=== PATIENT | male | born 1975 | race Caucasian/White ===

== ENCOUNTER 2025-10-21 21:25 | Emergency (ER) | payer OTHER, BC ==
[2025-10-21] MEDS ORDERED: Lidocaine 1% w/Epinephrine 1:200K 30 ML VIAL ONE (22:01)
[2025-10-21 22:18] LABS: #Basophils 0.03 10x3/uL (0.0-0.2); #Eosinophils 0.27 10x3/uL (0.0-0.5); #Monocytes 1.05 10x3/uL (0.0-1.1); #Neutrophils 4.73 10x3/uL (1.5-8.4); %Basophils 0.4 % (0.0-2.0); %Eosinophils 3.2 % (0.0-6.0); %Lymphocytes 27.2 % (18.0-47.0); %Monocytes 12.5 % (0.0-10.0); %Neutrophils 56.5 % (40.0-75.0); Hematocrit 40.5 % (38.8-50.0); Hemoglobin 14.1 g/dL (13.5-17.5); Mean Corpuscular Hemoglobin 30.0 pg (27.0-33.0); Mean Corpuscular Volume 86.2 fL (81.2-95.1); Platelet Count 252 10x3/uL (150-450); Red Blood Cell (RBC) Count 4.70 10x6/uL (4.32-5.72); White Blood Cell (WBC) Count 8.38 10x3/uL (3.5-10.5)
[2025-10-21 22:32] LABS: ALT (SGPT) 28 U/L (Less than 45); AST (SGOT) 29 U/L (11-34); Albumin 3.7 g/dL (3.1-4.5); Alkaline Phosphatase 58 U/L (40-110); Anion Gap 16 mmol/L (10-20); BUN (Urea Nitrogen) 18 mg/dL (8.9-20.6); Bilirubin, Total 0.5 mg/dL (0.3-1.2); Calc. Creatinine Clearance 0 mL/min (70-130); Calcium 8.9 mg/dL (7.8-10.44); Carbon Dioxide 25 mmol/L (22-29); Chloride 106 mmol/L (98-107); Globulin 3.1 g/dL (2.4-3.5); Glucose 127 mg/dL (70-105); Potassium 3.9 mmol/L (3.5-5.1); Sodium 143 mmol/L (136-145)
[2025-10-21] MEDS ORDERED: cefTRIAXone (ROCEPHIN) 1 GM VIAL ONE (22:32)
[2025-10-21] MEDS ORDERED: Sulfameth/Trimethoprim DS 800-160mg TAB ONE (22:36)
[2025-10-21 23:28] LABS: BF Segmented Neutrophils 84 %; Cell Count Non Hematic 7 %
== END 2025-10-21 23:58 | disposition home or self-care (01) ==
LOC: CSHERS 21:25
DX: S80.211A Abrasion, right knee, initial encounter (principal); M70.41 Prepatellar bursitis, right knee; X58.XXXA Exposure to other specified factors, initial encounter
CPT/HCPCS: 20610; 80053; 82945; 85025; 86140; 87070; 87205; 89051; 89060; 96374; J0696